=== PATIENT | male | born 1960 ===

== ENCOUNTER 2021-03-21 12:21 | Emergency (ER) | payer BC ==
[2021-03-21] MEDS ORDERED: Ondansetron 4 MG/2 ML SDV IVPUSH ONE ×2 (12:44→17:49)
[2021-03-21] MEDS ORDERED: Sodium Chloride 0.9% 1,000 ML IV ONE (12:44)
[2021-03-21] MEDS ORDERED: Sodium Chloride 0.9% 10 ML Syringe FLUSH PRN (12:44)
[2021-03-21] MEDS ORDERED: Ketorolac 15 MG/ML SDV IVPUSH ONE (12:44)
[2021-03-21] MEDS ORDERED: Sodium Chloride 0.9% 2.5 ML Syringe FLUSH PRN (12:44)
[2021-03-21] MEDS ORDERED: fentaNYL 50 MCG/ML SDV IVPUSH ONE ×4 (12:44→21:57)
--- NOTE | 2021-03-21 12:52 | EDM.PDOC ---
ED HPI GENERAL MEDICAL PROBLEM - General Chief Complaint: Genitourinary Problem Stated Complaint: BLOOD IN URINE Time Seen by Provider: 03/21/21 12:27 - History of Present Illness INITIAL COMMENTS - FREE TEXT/NARRATIVE: HISTORY AND PHYSICAL: History of present illness: This is a 60-year-old gentleman with history significant for irritable bowel syndrome, kidney stone approximately 5 years ago, hypertension, who presents to the ER today secondary to hematuria that he noticed last night and then approximately 11 AM today started experiencing severe pain with diaphoresis to his left lower quadrant. Patient denies any recent fevers, shakes, chills. Patient denies any vomiting or diarrhea but does have some nausea secondary to the pain. Patient does have some diaphoresis along with the pain in his abdomen. Patient denies any chest pain or shortness of breath. Patient has any pain to his flank or back or shoulders. Patient has any URI symptoms, cough, cold, runny nose. Patient denies any sore throat or swollen lymph nodes. Patient reports kidney stone approximately 5 years ago that was diagnosed that passed on its own not requiring any procedure. Review of systems: As per history of present illness and below otherwise all systems reviewed and negative. Past medical history: As per history of present illness and as reviewed below otherwise noncontributory. Surgical history: As per history of present illness and as reviewed below otherwise noncontributory. Social history: No reported history of drug abuse. Family history: As per history of present illness and as reviewed below otherwise nonco ntributory. Physical exam: This patient was seen and evaluated during the 2019 SARS-CoV-2 novel coronavirus pandemic period. Community viral transmission is ongoing at time of this encounter and the emergency department is operating under pandemic response procedures. Constitutional: Patient is oriented to person, place, and time. Appears well- developed and well-nourished. No distress. HEENT: Moist mucous membranes Head: Normocephalic and atraumatic Eyes: Right eye exhibits no discharge. Left eye exhibits no discharge. No scleral icterus Neck: Normal range of motion. No tracheal deviation present. Cardiovascular: Normal rate and regular rhythm. Pulmonary: Effort normal, no respiratory distress. Abd: Soft, nondistended, no rebound/guarding, no psoas or obturator signs, no tenderness at Mcberney's point, no Corrales's sign. Pt does not present with an exam that would be consistent with an acute surgical abdomen at this time. Tenderness palpation to his left lower quadrant. Musculoskeletal: Normal range of motion Neurologic: Alert and oriented to person, place and time. Skin: [place], warm and dry. Psychiatric: Normal mood and affect. Behavior is normal. Judgment and thought content normal. Nursing note and vital signs have been reviewed Assessment and plan: 60-year-old gentleman who presents ER today complaining of severe pain to his left lower quadrant with associated hematuria yesterday. Patient reports that his urine has cleared up although it is still slightly dark. Patient's presentation appears highly likely related to a possible kidney stone. Patient will be given fentanyl, Toradol, Zofran and IV fluids here in the ED while awaiting a CT of the abdomen pelvis without IV contrast to assist with diagnosing patient's symptoms. Patient reevaluated multiple times to me throughout his ED visit. Patient reports he had some relief initially with the medication given however he reports the pain is returning. Patient was given an additional fentanyl 5 mg IV will be reassessed. CT scan reveals a 2 cm UPJ stone at the renal pelvis with a moderate amount of hydronephrosis. Multiple other small stones were identified. Given patient's intractable pain and the size of the stone, I feel patient will need to be admitted to the hospital for pain management and definitive management. Case was discussed with Dr. Gibson at [facility] and has requested that we discussed the case with Dr. Schaeffer at [facility] to see if he would recommend transfer there instead secondary to the need for a percutaneous nephrostomy who she is unable to do given that his stone is greater than 1.5 cm. I have discussed the case with who has agreed to accept patient in transfer for definitive management of the patient's stone and pain. Patient will be admitted to the hospitalist service under Dr. Cowan. I have discussed the plan with the patient and he is in complete agreement with transfer to [facility]. Patient is currently clinically and hemodynamically stable. Patient's labs are all within normal limits without any evidence of sepsis. Patient's blood pressure currently is 144/84. Patient is afebrile and has not had any fevers at home. Definitive disposition and diagnosis as appropriate pending reevaluation and review of above. Lower left abdomen Pain Score (Numeric/FACES): 10 - Related Data Allergies Allergy/AdvReac Type Severity Reaction Status Date / Time Penicillins Allergy Hives Verified 03/21/21 12:38 Home Meds: Home Meds Plecanatide [Trulance] 3 mg PO DAILY 03/21/21 [History] Past Medical History HEENT History: Reports: Cataract - Past Surgical History HEENT Surgical History: Reports: Eye Surgery Social & Family History - Tobacco Use Tobacco Use Status *Q: Never Tobacco User - Recreational Drug Use Recreational Drug Use: No ED ROS GENERAL - Review of Systems Review Of Systems: See Below ED EXAM, GENERAL - Physical Exam Exam: See Below Course - Vital Signs Last Recorded V/S: Last Vital Signs Temp 97.4 F 03/21/21 15:04 Pulse 84 03/21/21 16:22 Resp 18 03/21/21 16:22 BP 144/84 H 03/21/21 16:22 Pulse Ox 98 03/21/21 16:22 - Orders/Labs/Meds Orders: Active Orders 24 hr Category Date Time Status Sodium Chloride 0.9% [Saline Flush] Med 03/21/21 12:44 Active 10 ml FLUSH ASDIRECTED PRN Sodium Chloride 0.9% [Saline Flush] Med 03/21/21 12:44 Active 2.5 ml FLUSH ASDIRECTED PRN Saline Lock Insert [OM.PC] Stat Oth 03/21/21 12:44 Ordered Medication Orders Sodium Chloride (Sodium Chloride 0.9% 10 Ml Syringe) 10 ml FLUSH ASDIRECTED PRN PRN Reason: Keep Vein Open Last Admin: 03/21/21 12:57 Dose: 10 ml Documented by: GALDINO Sodium Chloride (Sodium Chloride 0.9% 2.5 Ml Syringe) 2.5 ml FLUSH ASDIRECTED PRN PRN Reason: Keep Vein Open Last Admin: 03/21/21 12:57 Dose: 2.5 ml Documented by: GALDINO Labs: Laboratory Tests 03/21/21 03/21/21 03/21/21 Range/Units 12:50 12:50 12:50 WBC 9.86 (4.0-11.0) K/uL RBC 5.41 (4.50-5.90) M/uL Hgb 16.7 (13.0-17.0) g/dL Hct 47.8 (38.0-50.0) % MCV 88.4 (80.0-98.0) fL MCH 30.9 (27.0-32.0) pg MCHC 34.9 (31.0-37.0) g/dL RDW Std Deviation 43.3 (28.0-62.0) fl RDW Coeff of Jayne 13 (11.0-15.0) % Plt Count 206 (150-400) K/uL MPV 10.50 (7.40-12.00) fL Neut % (Auto) 68.0 (48.0-80.0) % Lymph % (Auto) 24.1 (16.0-40.0) % [place] % (Auto) 5.3 (0.0-15.0) % Eos % (Auto) 2.1 (0.0-7.0) % Baso % (Auto) 0.5 (0.0-1.5) % Neut # (Auto) 6.7 H (1.4-5.7) K/uL Lymph # (Auto) 2.4 (0.6-2.4) K/uL [place] # (Auto) 0.5 (0.0-0.8) K/uL Eos # (Auto) 0.2 (0.0-0.7) K/uL Baso # (Auto) 0.1 (0.0-0.1) K/uL Nucleated RBC % 0.0 /100WBC Nucleated RBCs # 0 K/uL Sodium 140 (136-148) mmol/L Potassium 3.9 (3.5-5.1) mmol/L Chloride 103 (98-107) mmol/L Carbon Dioxide 26.8 (21.0-32.0) mmol/L BUN 19 H (7.0-18.0) mg/dL Creatinine 1.2 (0.8-1.3) mg/dL Est Cr Clr Drug Dosing 73.65 mL/min Estimated GFR (MDRD) > 60.0 ml/min Glucose 118 H (74-106) mg/dL Calcium 9.2 (8.5-10.1) mg/dL Total Bilirubin 0.5 (0.2-1.0) mg/dL AST 18 (15-37) IU/L ALT 23 (14-63) IU/L Alkaline Phosphatase 78 (46-116) U/L Total Protein 8.1 (6.4-8.2) g/dL Albumin 3.9 (3.4-5.0) g/dL Globulin 4.2 H (2.6-4.0) g/dL Albumin/Globulin Ratio 0.9 (0.9-1.6) Lipase 138 (73-393) U/L Urine Color DARK YELLOW Urine Appearance CLOUDY Urine pH 5.5 (5.0-8.0) Ur Specific [place] >= 1.030 (1.001-1.035) Urine Protein 30 H (NEGATIVE) mg/dL Urine Glucose (UA) NEGATIVE (NEGATIVE) mg/dL Urine Ketones NEGATIVE (NEGATIVE) mg/dL Urine Occult Blood LARGE H (NEGATIVE) Urine Nitrite NEGATIVE (NEGATIVE) Urine Bilirubin NEGATIVE (NEGATIVE) Urine Urobilinogen 0.2 (<2.0) EU/dL Ur Leukocyte Esterase NEGATIVE (NEGATIVE) Urine RBC TOO NUMEROUS TO CT (0-2/HPF) Urine WBC 2-5 (0-5/HPF) Ur Epithelial Cells FEW (NONE-FEW) Amorphous Sediment MODERATE (NEGATIVE) Urine Bacteria 1+ H (NEGATIVE) Urine Mucus LIGHT (NONE-MOD) Meds: Medications Generic Name Dose Route Start Last Admin Trade Name Freq PRN Reason Stop Dose Admin Sodium Chloride 10 ml 03/21/21 12:44 03/21/21 12:57 Sodium Chloride 0.9% 10 Ml Syringe FLUSH 10 ml ASDIRECTED PRN Administration Keep Vein Open Sodium Chloride 2.5 ml 03/21/21 12:44 03/21/21 12:57 Sodium Chloride 0.9% 2.5 Ml Syringe FLUSH 2.5 ml ASDIRECTED PRN Administration Keep Vein Open Discontinued Medications Generic Name Dose Route Start Last Admin Trade Name Freq PRN Reason Stop Dose Admin Fentanyl 100 mcg 03/21/21 12:44 03/21/21 12:57 Fentanyl 50 Mcg/Ml Sdv IVPUSH 03/21/21 12:45 100 mcg ONETIME ONE Administration Fentanyl 100 mcg 03/21/21 15:09 03/21/21 15:25 Fentanyl 50 Mcg/Ml Sdv IVPUSH 03/21/21 15:10 100 mcg ONETIME ONE Administration Sodium Chloride 1,000 mls @ 999 mls/hr 03/21/21 12:44 03/21/21 12:56 Normal Saline IV 03/21/21 13:44 999 mls/hr .Bolus ONE Administration Ketorolac Tromethamine 15 mg 03/21/21 12:44 03/21/21 12:56 Ketorolac 15 Mg/Ml Sdv IVPUSH 03/21/21 12:45 15 mg ONETIME ONE Administration Ondansetron HCl 4 mg 03/21/21 12:44 03/21/21 12:56 Ondansetron 4 Mg/2 Ml Sdv IVPUSH 03/21/21 12:45 4 mg ONETIME ONE Administration Departure - Departure Time of Disposition: 16:30 Disposition: DC/Tfer to [facility] 02 Condition: Fair Clinical Impression: Intractable abdominal pain, Renal colic on left side, Hydronephrosis, left - Discharge Information Referrals: PCP,None [Primary Care Provider] - Forms: ED Department Discharge Sepsis Event Note (ED) - Evaluation Sepsis Screening Result: Possible Sepsis Risk - Focused Exam Vital Signs: Vital Signs Temp Pulse Resp BP Pulse Ox 03/21/21 16:22 84 18 144/84 H 98 03/21/21 15:04 97.4 F 92 18 166/98 H 98 03/21/21 12:38 96 F L 99 181/121 H 97 - My Orders Last 24 Hours: My Active Orders 03/21/21 12:44 Sodium Chloride 0.9% [Saline Flush] 10 ml FLUSH ASDIRECTED PRN Sodium Chloride 0.9% [Saline Flush] 2.5 ml FLUSH ASDIRECTED PRN Saline Lock Insert [OM.PC] Stat - Assessment/Plan Last 24 Hours: My Active Orders 03/21/21 12:44 Sodium Chloride 0.9% [Saline Flush] 10 ml FLUSH ASDIRECTED PRN Sodium Chloride 0.9% [Saline Flush] 2.5 ml FLUSH ASDIRECTED PRN Saline Lock Insert [OM.PC] Stat
[2021-03-21 13:33] LABS: BLOOD UREA NITROGEN,BUN 19 mg/dL (7.0-18.0); CARBON DIOXIDE,CO2 26.8 mmol/L (21.0-32.0); CHLORIDE,CL 103 mmol/L (98-107); GLUCOSE RANDOM 118 mg/dL (74-106); LIPASE 138 U/L (73-393); POTASSIUM,K 3.9 mmol/L (3.5-5.1); SODIUM,NA 140 mmol/L (136-148)
--- NOTE | 2021-03-21 14:08 | CT ---
INDICATION: Left lower quadrant abdomen pain. TECHNIQUE: CT abdomen and pelvis without contrast. COMPARISON: None. FINDINGS: Lower chest: Unremarkable. Liver: Normal in size and attenuation. No masses. Gallbladder and bile ducts: No stones or inflammation. No biliary dilatation. Pancreas: Unremarkable. No mass or inflammation. Spleen: Normal in size. No masses. Adrenal glands: Normal in size. No nodules. Kidneys: Large 2.1 x 1.3 cm stone is in the left renal pelvis adjacent to the UPJ. There are 2 other smaller adjacent stones in this location. Few other small stones are in the calices of the left kidney with 1 tiny stone in the right kidney. Moderate left-sided hydronephrosis. Multiple bilateral benign appearing cysts including a large 10 cm cyst in the right kidney. GI tract: Unremarkable. Normal in caliber. No sign of mass or inflammation. Normal appendix. Vasculature: Unremarkable. Lymph nodes: No lymphadenopathy. Abdominal wall/Omentum/Peritoneum: Unremarkable. No sign of mass or infiltration. No free air or significant free fluid. Pelvis: Moderate prostate gland enlargement. Bones: Unremarkable for age. IMPRESSION: 1. Large stone measuring up to 2 cm in the left renal pelvis near the ureteropelvic junction is causing moderate hydronephrosis. Multiple additional stones present in the left renal collecting system with 1 tiny stone in the right kidney. 2. Moderate prostatomegaly. Please note that all CT scans at this facility use dose modulation, iterative reconstruction, and/or weight-based dosing when appropriate to reduce radiation dose to as low as reasonably achievable. Dictated by Jimenez Sutherland MD @ 03/21/2021 2:06:[address] Jimenez Sutherland @ Mar 21 2021 2:06PM
[2021-03-21] MEDS ORDERED: Ketorolac 15 MG/ML SDV IVPUSH STA (17:50)
[2021-03-22] MEDS ORDERED: Ketorolac 30 MG/ML SDV IVPUSH ONE (01:57)
[2021-03-22] MEDS ORDERED: fentaNYL 50 MCG/ML SDV IVPUSH ONE (01:57)
== END 2021-03-22 04:17 ==
LOC: MW.ED 12:21
DX: N13.2 Hydronephrosis with renal and ureteral calculous obstruction (principal); Z88.0 Allergy status to penicillin
CPT/HCPCS: 36415; 74176; 80053; 81001; 83690; 85025; 96374; 96375; 96376; 99285; J1885; J2405; J3010; J7030; 99284